=== PATIENT | female | born 1940 | race Caucasian/White ===

== ENCOUNTER 2017-12-03 11:49 | Day surgery (SDC) | payer OTHER ==
[~2017-12-03] VITALS: Ht 157.5 cm; Wt 86.0 kg
[~2017-12-03 11:49] MED LIST: AMIODARONE HCL200 MG PO; METOPROLOL TART25 MG PO; PRADAXA150 MG PO
== END 2017-12-03 14:47 | disposition home or self-care (01) ==
LOC: CATH 11:49
PROVIDERS: Internal Medicine Cardiovascular Disease
PROC: 5A2204Z Restoration of Cardiac Rhythm, Single (ICD-10-PCS; principal; 2017-12-03)
DX: I48.0 Paroxysmal atrial fibrillation (principal); I10 Essential (primary) hypertension; E11.9 Type 2 diabetes mellitus without complications; E78.5 Hyperlipidemia, unspecified; Z87.891 Personal history of nicotine dependence
CPT/HCPCS: 82948; 93005; 93312; J2250